=== PATIENT | female | born 1935 | race American Indian/Alaskan Native ===

== ENCOUNTER 2017-02-22 09:11 | Emergency (ER) | payer MEDICARE ==
--- NOTE | 2017-02-22 09:40 | Emergency Department Report ---
Chief Complaint: Back Pain/Injury Stated Complaint: LOWER BACK PAIN Time Seen by Provider: 02/22/17 09:39 - HPI History of Present Illness: Patient here complaining of lower back pain. She denies any urinary burning frequency or urgency. Denies any abdominal pain or nausea or vomiting. Denies any fevers chills. Patient was history of dementia and hypertension. She is here with her daughter - ROS Review of Systems: All systems are negative unless stated in HPI above - Exam Vital Signs: Vital Signs 02/22/17 09:17 Temperature 98.3 F Pulse Rate 52 L Respiratory 18 Rate Blood Pressure 198/78 O2 Sat by Pulse 97 Oximetry Physical Exam: Gen.: This is a frail looking in 81-year-old female that is nontoxic in appearance. Abdomen: Nontender to palpate, no guarding or rebound tenderness. Normal bowel sounds MSE screening note: Focused history and physical exam performed. Due to findings the following was ordered: ED Medical Decision Making - Medical Decision Making MDM: Patient screened by provider in triage area. Appropriate protocol initiated and patient to be seen in main ED by ED Disposition for MSE Condition: Stable Referrals: PRIMARY CARE, [Primary Care Provider] - 3-5 Days
[2017-02-22 10:18] LABS: Bacteria,Urine 2+ /HPF (Negative); Bilirubin,Urine NEG (Negative); Blood,Urine NEG (Negative); Ketones,Urine NEG (Negative); Leukocyte Esterase,Urine MOD (Negative); Mucus,Urine FEW /HPF; Nitrite,Urine NEG (Negative); Protein,Urine <15 mg/dL mg/dL (Negative)
[2017-02-22 10:23] LABS: Anion Gap 15 mmol/L; BUN/Creatinine Ratio 20; Blood Urea Nitrogen 10 mg/dL (7-17); Calcium 8.6 mg/dL (8.4-10.2); Carbon Dioxide 28 mmol/L (22-30); Chloride 104.3 mmol/L (98-107); Glucose 89 mg/dL (65-100); Sodium 144 mmol/L (137-145)
[2017-02-22 10:29] LABS: Basophils % (Auto) 0.3 % (0.0-1.8); Eosinophils % (Auto) 0.6 % (0.0-4.3); Mean Corpuscular HGB Conc 32 % (30-34); Mean Corpuscular Hemoglobin 28 pg (28-32); Mean Corpuscular Volume 88 fl (79-97); Platelet Count 183 K/mm3 (140-440); Red Blood Count 4.32 M/mm3 (3.65-5.03); Red Cell Distribution Width 15.6 % (13.2-15.2); White Blood Count 6.8 K/mm3 (4.5-11.0)
[2017-02-22] MEDS ORDERED: SUBLIMAZE IV ONE (13:43)
[2017-02-22] MEDS ORDERED: NACL 0.9% 250ML 250 ML IV ONE (13:43)
--- NOTE | 2017-02-22 13:44 | Emergency Department Report ---
ED General Adult HPI - General Chief complaint: Back Pain/Injury Stated complaint: LOWER BACK PAIN Time Seen by Provider: 02/22/17 09:39 Source: patient, family, RN notes reviewed Mode of arrival: Ambulatory Limitations: No Limitations - History of Present Illness Initial comments: This is an 81-year-old female who is previously unknown to this provider. She is accompanied by her daughter. Denies history of abdominal surgery, brought to the hospital for evaluation of back pain. The back pain history of present for 2 days. It is in the bilateral lumbar regions, and also involves the lower abdominal region. No headache, neck pain, chest pain, shortness of breath, urinary symptoms. The pain does not radiate anywhere, the pain increases with palpation, range of motion, walking. It decreases with rest. Patient denies irritative/obstructive urinary symptoms. -: Gradual Location: back, abdomen Quality: aching Consistency: intermittent Improves with: movement, rest Associated Symptoms: denies: chest pain, cough, diaphoresis, fever/chills, loss of appetite, malaise, nausea/vomiting, shortness of breath, syncope, weakness - Related Data Home Medications Medication Instructions Recorded Confirmed Last Taken Aspirin [Aspirin BABY CHEW TAB] 81 mg PO QDAY 02/05/14 02/05/14 Unknown Cholecalciferol (Vitamin D3) 2,000 unit PO BID 02/05/14 02/05/14 Unknown [Vitamin D3] Donepezil [Aricept] 5 mg PO QHS 02/05/14 02/05/14 Unknown HYDROcodone/ACETAMINOPHEN [[place] 1 each PO Q4H PRN 02/05/14 02/05/14 Unknown 5-325 mg Tablet] Lipase/Protease/Amylase [Creon Dr 1 each PO TID 02/05/14 02/05/14 Unknown 12,000 Units] Previous Rx's Medication Instructions Recorded Last Taken Type Hydralazine HCl [hydrALAZINE] 50 mg PO Q12H #60 tablet 02/05/14 Unknown Rx Potassium Chloride [K-Dur] 10 meq PO QDAY #20 tablet 02/05/14 Unknown Rx Acetaminophen [Tylenol Arthritis] 650 mg PO Q6HR PRN #30 tablet.er 02/22/17 Unknown Rx Ibuprofen [Motrin] 400 mg PO Q8H PRN #30 tablet 02/22/17 Unknown Rx Lisinopril [Zestril TAB] 40 mg PO QDAY #30 tablet 02/22/17 Unknown Rx Nitrofurantoin [place]/M-Cryst 100 mg PO Q12HR #14 capsule 02/22/17 Unknown Rx [Macrobid CAP] Allergies Allergy/AdvReac Type Severity Reaction Status Date / Time No Known Allergies Allergy Verified 02/22/17 09:17 ED Review of Systems ROS: Stated complaint: LOWER BACK PAIN Other details as noted in HPI Constitutional: denies: fever Eyes: denies: vision change ENT: denies: epistaxis Respiratory: denies: cough Cardiovascular: denies: chest pain Gastrointestinal: abdominal pain Genitourinary: denies: dysuria Musculoskeletal: back pain Neurological: denies: numbness, paresthesias ED Past Medical Hx - Past Medical History Previous Medical History?: Yes Hx Hypertension: Yes Additional medical history: Dementia - Surgical History Past Surgical History?: Yes Additional Surgical History: Hip replacement on rt. - Social History Smoking Status: Never Smoker Substance Use Type: None - Medications Home Medications: Home Medications Medication Instructions Recorded Confirmed Last Taken Type Aspirin [Aspirin BABY CHEW TAB] 81 mg PO QDAY 02/05/14 02/05/14 Unknown History Cholecalciferol (Vitamin D3) 2,000 unit PO BID 02/05/14 02/05/14 Unknown History [Vitamin D3] Donepezil [Aricept] 5 mg PO QHS 02/05/14 02/05/14 Unknown History HYDROcodone/ACETAMINOPHEN [[place] 1 each PO Q4H PRN 02/05/14 02/05/14 Unknown History 5-325 mg Tablet] Hydralazine HCl [hydrALAZINE] 50 mg PO Q12H #60 tablet 02/05/14 Unknown Rx Lipase/Protease/Amylase [Creon Dr 1 each PO TID 02/05/14 02/05/14 Unknown History 12,000 Units] Potassium Chloride [K-Dur] 10 meq PO QDAY #20 tablet 02/05/14 Unknown Rx Acetaminophen [Tylenol Arthritis] 650 mg PO Q6HR PRN #30 tablet.er 02/22/17 Unknown Rx Ibuprofen [Motrin] 400 mg PO Q8H PRN #30 tablet 02/22/17 Unknown Rx Lisinopril [Zestril TAB] 40 mg PO QDAY #30 tablet 02/22/17 Unknown Rx Nitrofurantoin [place]/M-Cryst 100 mg PO Q12HR #14 capsule 02/22/17 Unknown Rx [Macrobid CAP] ED Physical Exam - General Limitations: Other (patient is demented. Patient is a poor historian. Daughter assists in the patient's history.) General appearance: alert, in no apparent distress - Head Head exam: Present: atraumatic, normocephalic - Eye Eye exam: Present: normal appearance, EOMI - ENT ENT exam: Present: normal exam, normal orophraynx, mucous membranes moist, normal external ear exam - Neck Neck exam: Present: normal inspection, full ROM - Respiratory Respiratory exam: Present: normal lung sounds bilaterally. Absent: respiratory distress - Cardiovascular Cardiovascular Exam: Present: regular rate, normal rhythm, normal heart sounds. Absent: systolic murmur, diastolic murmur, rubs, gallop - GI/Abdominal GI/Abdominal exam: Present: soft, normal bowel sounds. Absent: distended, tenderness, guarding, rebound, rigid, pulsatile mass - Extremities Exam Extremities exam: Present: normal inspection, full ROM, normal capillary refill. Absent: calf tenderness - Back Exam Back exam: Present: normal inspection, full ROM, paraspinal tenderness. Absent : vertebral tenderness - Neurological Exam Neurological exam: Present: alert, CN II-XII intact, normal gait, other ( Extraocular movements intact. Tongue midline. No facial droop. Facial sensation intact to light touch in the V1, V2, V3 distribution bilaterally. 5 and 5 strength in 4 extremities.. Sensation is intact to light touch in 4 extremities.). Absent: motor sensory deficit - Psychiatric Psychiatric exam: Present: normal affect, normal mood - Skin Skin exam: Present: warm, dry, intact, normal color. Absent: rash ED Course Vital Signs 02/22/17 09:17 Temperature 98.3 F Pulse Rate 52 L Respiratory 18 Rate Blood Pressure 198/78 O2 Sat by Pulse 97 Oximetry - Reevaluation(s) Reevaluation #1: 02/22/17 15:02 Differential diagnosis, including with limited to: Spinal stenosis, AAA, intra- abdominal infection, urinary tract infection, mechanical back pain Assessment and plan: 81-year-old elderly female with back pain and lower abdominal pain. She is afebrile with reassuring vital signs with the exception of hypertension. Urinalysis suggests asymptomatic bacteriuria. Patient will be given pain medication CT scan of the abdomen and pelvis has been obtained, repeat vital signs are pending. Reevaluation #2: 02/22/17 15:22 CT scan of the abdomen and pelvis is negative for acute findings. The patient feels improved. Her blood pressure was somewhat improved. Patient will be discharged at this time with her daughter. ED Medical Decision Making - Lab Data Result diagrams: 02/22/17 09:50 02/22/17 09:50 Vital Signs 02/22/17 09:17 Temperature 98.3 F Pulse Rate 52 L Respiratory 18 Rate Blood Pressure 198/78 O2 Sat by Pulse 97 Oximetry Lab Results 02/22/17 02/22/17 02/22/17 Range/Units 09:50 09:50 09:50 WBC 6.8 (4.5-11.0) K/mm3 RBC 4.32 (3.65-5.03) M/mm3 Hgb 12.0 (10.1-14.3) gm/dl Hct 38.0 (30.3-42.9) % MCV 88 (79-97) fl MCH 28 (28-32) pg MCHC 32 (30-34) % RDW 15.6 H (13.2-15.2) % Plt Count 183 (140-440) K/mm3 Lymph % (Auto) 19.4 (13.4-35.0) % [place] % (Auto) 6.0 (0.0-7.3) % Eos % (Auto) 0.6 (0.0-4.3) % Baso % (Auto) 0.3 (0.0-1.8) % Lymph # 1.3 (1.2-5.4) K/mm3 [place] # 0.4 (0.0-0.8) K/mm3 Eos # 0.0 (0.0-0.4) K/mm3 Baso # 0.0 (0.0-0.1) K/mm3 Seg Neutrophils % 73.7 H (40.0-70.0) % Seg Neutrophils # 5.0 (1.8-7.7) K/mm3 Sodium 144 (137-145) mmol/L Potassium 3.0 L (3.6-5.0) mmol/L Chloride 104.3 (98-107) mmol/L Carbon Dioxide 28 (22-30) mmol/L Anion Gap 15 mmol/L BUN 10 (7-17) mg/dL Creatinine 0.5 L (0.7-1.2) mg/dL Estimated GFR > 60 ml/min BUN/Creatinine Ratio 20 % Glucose 89 (65-100) mg/dL Calcium 8.6 (8.4-10.2) mg/dL Lipase 16 (13-60) units/L Urine Color (Yellow) Urine Turbidity (Clear) Urine pH (5.0-7.0) Ur Specific [place] (1.003-1.030) Urine Protein (Negative) mg/dL Urine Glucose (UA) (Negative) mg/dL Urine Ketones (Negative) mg/dL Urine Blood (Negative) Urine Nitrite (Negative) Urine Bilirubin (Negative) Urine Urobilinogen (<2.0) mg/dL Ur Leukocyte Esterase (Negative) Urine WBC (Auto) (0.0-6.0) /HPF Urine RBC (Auto) (0.0-6.0) /HPF U Epithel Cells (Auto) (0-13.0) /HPF Urine Bacteria (Auto) (Negative) /HPF Urine Mucus /HPF 02/22/17 Range/Units 09:51 WBC (4.5-11.0) K/mm3 RBC (3.65-5.03) M/mm3 Hgb (10.1-14.3) gm/dl Hct (30.3-42.9) % MCV (79-97) fl MCH (28-32) pg MCHC (30-34) % RDW (13.2-15.2) % Plt Count (140-440) K/mm3 Lymph % (Auto) (13.4-35.0) % [place] % (Auto) (0.0-7.3) % Eos % (Auto) (0.0-4.3) % Baso % (Auto) (0.0-1.8) % Lymph # (1.2-5.4) K/mm3 [place] # (0.0-0.8) K/mm3 Eos # (0.0-0.4) K/mm3 Baso # (0.0-0.1) K/mm3 Seg Neutrophils % (40.0-70.0) % Seg Neutrophils # (1.8-7.7) K/mm3 Sodium (137-145) mmol/L Potassium (3.6-5.0) mmol/L Chloride (98-107) mmol/L Carbon Dioxide (22-30) mmol/L Anion Gap mmol/L BUN (7-17) mg/dL Creatinine (0.7-1.2) mg/dL Estimated GFR ml/min BUN/Creatinine Ratio % Glucose (65-100) mg/dL Calcium (8.4-10.2) mg/dL Lipase (13-60) units/L Urine Color Yellow (Yellow) Urine Turbidity Clear (Clear) Urine pH 5.0 (5.0-7.0) Ur Specific [place] 1.023 (1.003-1.030) Urine Protein <15 mg/dl (Negative) mg/dL Urine Glucose (UA) Neg (Negative) mg/dL Urine Ketones Neg (Negative) mg/dL Urine Blood Neg (Negative) Urine Nitrite Neg (Negative) Urine Bilirubin Neg (Negative) Urine Urobilinogen 2.0 (<2.0) mg/dL Ur Leukocyte Esterase Mod (Negative) Urine WBC (Auto) 7.0 H (0.0-6.0) /HPF Urine RBC (Auto) 4.0 (0.0-6.0) /HPF U Epithel Cells (Auto) 9.0 (0-13.0) /HPF Urine Bacteria (Auto) 2+ (Negative) /HPF Urine Mucus Few /HPF - Radiology Data Radiology results: pending Critical care attestation.: If time is entered above; I have spent that time in minutes in the direct care of this critically ill patient, excluding procedure time. ED Disposition Clinical Impression: Back pain, Elevated blood pressure reading Disposition: TO HOME OR SELFCARE Is pt being admited?: No Does the pt Need Aspirin: No Condition: Stable Instructions: Chronic Back Pain (ED) Additional Instructions: Take the pain medication, antibiotics, blood pressure medication as directed. Follow up with a primary care doctor within the next month. Please note that elevated blood pressure is a risk factor for stroke, heart attack, disability, , paralysis, loss of quality of life. Therefore, it is very important the patient follow-up in outpatient primary care doctor is recommended. Return to the ER right away with new pain, worsened pain, migration of pain, fevers, chills, lethargy, irritability, projectile vomiting, change in mental status, confusion, inability to tolerate liquid feeds. Referrals: PRIMARY CARE, [Primary Care Provider] - 3-5 Days MICHELLE TONG MD [Staff Physician] - 3-5 Days VALERY ESCOBAR MD [Staff Physician] - 3-5 Days [facility] [Provider Group] - 3-5 Days
[2017-02-22] MEDS ORDERED: K-DUR PO ONE (15:03)
--- NOTE | 2017-02-22 15:14 | Cat Scan Report ---
CT of the abdomen and pelvis with IV contrast. History: Abdominal and back pain. Findings: Minimal parenchymal scarring is noted in the lingular segment of the left upper lobe and in the lateral basal segment of the left lower lobe. Right lower lobe peripheral scarring is also noted. The liver and spleen are normal. The pancreas is unremarkable. The kidneys are normal in size and configuration with no evidence of hydronephrosis. A small right renal cyst is noted. No solid renal masses are seen. There is no adenopathy in the retroperitoneum. There is no evidence of appendicitis. A right hip nail is noted. The abdominal aorta is normal. No mesenteric inflammation is seen. Minimal free fluid is seen within the pelvis. No free air is identified. Impression: No significant findings. A small right renal cyst is noted. Bilateral pulmonary parenchymal scarring is also noted.
[2017-02-22 16:02] VITALS: BP 211/102
== END 2017-02-22 16:16 | disposition home or self-care (01) ==
LOC: ED 09:11
DX: M54.5 Low back pain (principal); I10 Essential (primary) hypertension; Z98.890 Other specified postprocedural states; Z79.82 Long term (current) use of aspirin
CPT/HCPCS: 36415; 74177; 80048; 81001; 83690; 85025; 96374; 99284; J3010; J7050; Q9967